=== PATIENT | male | born 2000 | race Caucasian/White ===

== ENCOUNTER 2019-07-13 15:32 | Emergency (ER) | payer OTHER ==
[~2019-07-13] VITALS: Ht 167.6 cm; Wt 57.9 kg
[2019-07-13 15:32] VITALS: BP 124/69
[2019-07-13 16:29] LABS: BASO % 0.6 % (0.0-1.0); EOS # 0.1 10^3/uL (0.0-0.5); EOS % 1.9 % (0.0-3.0); HEMOGLOBIN 12.9 g/dl (13.5-17.5); LYMPH # 1.7 10^3/uL (1.5-5.0); LYMPH % 27.3 % (24.0-44.0); MEAN CORPUSCULAR HEMOGLOBIN 29.3 pg (27.0-33.0); MEAN CORPUSCULAR HGB CONC 33.1 g/dl (32.0-36.5); MEAN CORPUSCULAR VOLUME 88.6 fl (80.0-96.0); MONO # 0.7 10^3/uL (0.0-0.8); MONO % 11.4 % (0.0-5.0); NEUTROPHILS # 3.6 10^3/uL (1.5-8.5); NEUTROPHILS % 58.6 % (36.0-66.0); PLATELET COUNT, AUTOMATED 256 10^3/uL (150-450); WHITE BLOOD COUNT 6.2 10^3/uL (4.0-10.0)
[2019-07-13 16:48] LABS: ERYTHROCYTE SEDIMENTATION RATE 3 mm/hr (0-15)
[2019-07-13 16:56] LABS: ALBUMIN 3.8 GM/DL (3.2-5.2); ALT/SGPT 62 U/L (12-78); BILIRUBIN,DIRECT 0.2 MG/DL (0.0-0.2); BILIRUBIN,TOTAL 0.5 MG/DL (0.2-1.0); BLOOD UREA NITROGEN 13 MG/DL (7-18); C REACTIVE PROTEIN QUANTITATIV 0.41 MG/DL (0.00-0.30); CALCIUM LEVEL 8.5 MG/DL (8.5-10.1); CARBON DIOXIDE LEVEL 26 MEQ/L (21-32); CHLORIDE LEVEL 114 MEQ/L (98-107); CREATININE FOR GFR 0.99 MG/DL (0.70-1.30); GLUCOSE, FASTING 106 MG/DL (70-100); POTASSIUM SERUM 3.9 MEQ/L (3.5-5.1); RHEUMATOID FACTOR QUANT < 10.0 IU/ML (<15.0); SODIUM LEVEL 144 MEQ/L (136-145)
[2019-07-13] MEDS ORDERED: MOBI4TAB PO (17:15)
[2019-07-17 00:09] LABS: ANTINUCLEAR ANTIBODIES DIRECT Negative (Negative); Lyme Disease IgG/IgM Antibodie <0.91 ISR (0.00-0.90); Lyme Disease IgM Ab Quantitati <0.80 index (0.00-0.79)
== END 2019-07-13 17:33 | disposition home or self-care (01) ==
LOC: M ED 15:32
DX: M13.0 Polyarthritis, unspecified (principal); F17.200 Nicotine dependence, unspecified, uncomplicated; Z79.899 Other long term (current) drug therapy

== ENCOUNTER 2020-01-17 20:30 | Emergency (ER) | payer OTHER ==
[~2020-01-17] VITALS: Ht 170.2 cm; Wt 54.5 kg
[~2020-01-17 20:30] MED LIST: MOBI4TAB PO
[2020-01-17 20:44] VITALS: BP 142/75
--- NOTE | 2020-01-17 22:05 | REPVR ---
PROCEDURE INFORMATION: Exam: XR Right Knee Exam date and time: 01/17/2020 8:38 PM Age: 19 years old Clinical indication: Post patella reduction TECHNIQUE: Imaging protocol: XR Right knee. Views: 2 views. COMPARISON: No relevant prior studies available. FINDINGS: Bones/joints: There is no fracture or dislocation. No joint effusion is identified. The joint spaces are preserved. No arthropathy is noted. The patellofemoral alignment is normal. Soft tissues: Unremarkable. IMPRESSION: No fracture or dislocation of the right knee. Normal patellofemoral alignment. Electronically signed by: Raulito Pineda On 01/17/2020 22:04:51 PM
== END 2020-01-17 22:20 | disposition home or self-care (01) ==
LOC: M ED 20:30
DX: S83.014A Lateral dislocation of right patella, initial encounter (principal); X50.1XXA Overexertion from prolonged static or awkward postures, initial encounter; Y92.89 Other specified places as the place of occurrence of the external cause; Y93.89 Activity, other specified; Y99.1 Military activity

== ENCOUNTER 2021-03-14 11:27 | Emergency (ER) | payer OTHER ==
[~2021-03-14] VITALS: Ht 167.6 cm; Wt 65.2 kg
--- OUTSIDE RECORDS SUMMARY | 2021-03-14 11:35 | CCD | Continuity of Care Document ---
Author Author Osvaldo OCASIO PA-C Organization Unknown Address [address] [address] Phone [phone] Care Team Providers Care Ciaio Counter Molder Name Role Phone Grant Siddiqui MD AUTM Unavailable Naeem Hall PA-C AUTM [phone] Problems Description No Information Available Social History Type Date Description Comments Sex Unknown ETOH Use Rarely consumes alcohol Tobacco Use Start: Unknown Patient is a current smoker, smo kes some days Smoking Status Reviewed: 01/15/21 Patient is a current smoker, smokes some days Allergies and adverse reactions Description No Known Drug Allergies Medications Active Medications SIG Qnty Indications Ordering Provide r Date Hydrocodone Bitartrate/Acetaminophen 5-325mg Tablets 1-2 tabs by mouth every 4-6 hours prn/pa in after surgery(Please DO Not Fill Until ) 40tabs Myrna Fulton MD Ibuprofen 200mg Tablets three times a day Unknown Immunizations Description No Information Available Vital Signs Date Vital Result Comment 02/26/2021 2:19pm Height 97.3 inches 8'1.30" 01/15/2021 8:59am Body Temperature 97.5 F Height 66.5 inches 5'6.50" Weight 147.12 lb BMI (Body Mass Index) 23.4 kg/m2 Results Test Acquired Date Facility Test Result H/L Range Note Laboratory test finding 01/21/2021 In House Covid Rapid Testing NEGATIVE 1 1 [facility] START COVID 19-ANTIGEN LOT #[id number] 02/15/21 @9:22AM Procedures Date Code Description Status 02/18/2021 80531 Reconstruct Patella W/Extensor Realignment/Muscle Advance/Release Completed 02/18/2021 14814 Reconstruct Patella W/Extensor Realignment/Muscle Advance/Release Completed 01/15/2021 34791 Office/Outpatient Established Mo d MDM 30-39 Min Completed 01/01/2021 98260 Office/Outpatient Established Lo w MDM 20-29 Min Completed 12/14/2020 45820 Office/Outpatient Established Mo d MDM 30-39 Min Completed 12/14/2020 41922 X-Ray Knee Ap & Lateral W/Obliqu es Three Views Completed Medical Devices Description No Information Available Encounters Type Date Location Provider Dx Diagnosis Office Visit 02/26/2021 2:30p Yesenia Ocasio PA-C Z4 7.89 Encounter for other orthopedic aftercare Office Visit 01/15/2021 8:45a Yesenia Fulton MD 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, right knee Office Visit 01/01/2021 8:30a Yesenia Fulton MD 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, right knee Office Visit 12/14/2020 10:30a Yesenia Fulton MD 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, right knee Assessments Date Code Description Provider 02/26/2021 Z47.89 Encounter for other orthopedic a ftercare Elizabeth Ocasio PA-C 02/18/2021 M2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 , right knee Elizabeth Ocasio PA-C 02/18/2021 M2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 , right knee Myrna Fulton MD 02/18/2021 M23.51 Chronic instability of knee, rig ht knee Elizabeth Ocasio PA-C 02/18/2021 M23.51 Chronic instability of knee, rig ht knee Myrna Fulton MD 02/15/2021 Z01.818 Encounter for other preprocedura l examination Myrna Fulton MD 02/15/2021 Z01.818 Encounter for other preprocedura l examination Lab 02/15/2021 Z20.828 Contact with and (christina spected) exposure to other viral communicable diseases Myrna Fulton MD 02/15/2021 Z20.828 Contact with and (christina spected) exposure to other viral communicable diseases Lab 02/05/2021 M2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 , right knee Myrna Fulton MD 01/21/2021 Z20.828 Contact with and (christina spected) exposure to other viral communicable diseases Myrna Fulton MD 01/15/2021 M2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 , right knee Myrna Fulton MD 01/01/2021 M2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 , right knee Myrna Fulton MD 12/14/2020 M2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 , right knee Myrna Fulton MD Plan of Treatment Future Appointment(s):* 03/16/2021 11:00 am - Elizabeth Ocasio PA-C at [place] 02/26/2021 - Elizabeth Ocasio PA-C* Z47.89 Encounter for other orthopedic aftercare* Follow up:* 2-3 weeks right knee recheck with BMS Functional Status Description No Information Available Mental Status Description No Information Available Referrals Refer to Dr Reason for Referral Status Appt Date Tressa Fulton MD DME NO AUTH REQUIRED FOR T-S COPE KNEE BRACE ([id number]) PER [employer] WEB TO [facility] NT Created [address] [place] [address] [phone] Tressa Fulton MD DME CRUTCHES AND RT KNEE IMM OBILIZER NO AUTH REQUIRED PER WEB. LS Created [address] [place] [address] [phone] Tressa Fulton MD SURGERY RECEIVED WRITTEN AUT H FOR RIGHT MPFL KNEE SURGERY ([id number] AND [id number]) TO SURGERY NT Created [address] [place] [address] [phone] Tressa Fulton MD RT KNEE PER WEB. LS Created [address] [place] [address] [phone] Tressa Fulton MD RT KNEE ( 3 VISITS) PER WEB. Creat ed [address] [facility], [address] [place] [address] [phone]
--- OUTSIDE RECORDS SUMMARY | 2021-03-14 11:36 | CCD | Continuity of Care Document ---
Author Author Osvaldo FULTON MD Organization Unknown Address [address] [place] [address], [facility] [address] [place] [address] Phone [phone] Care Team Providers Care Stock Mixer Name Role Phone Grant Siddiqui MD AUTM Unavailable Naeem Hall PA-C AUTM [phone] Problems Description No Information Available Social History Type Date Description Comments Sex Unknown ETOH Use Rarely consumes alcohol Tobacco Use Start: Unknown Patient is a current smoker, smo kes some days Smoking Status Reviewed: 01/15/21 Patient is a current smoker, smokes some days Allergies, Adverse Reactions, Alerts Description No Known Drug Allergies Medications Active Medications SIG Qnty Indications Ordering Provide r Date Ibuprofen 200mg Tablets three times a day Unknown Immunizations Description No Information Available Vital Signs Date Vital Result Comment 01/15/2021 8:59am Body Temperature 97.5 F Height 66.5 inches 5'6.50" Weight 147.12 lb BMI (Body Mass Index) 23.4 kg/m2 02/06/2020 3:32pm Body Temperature 97.8 F Height 67 inches 5'7" Weight 131.00 lb BMI (Body Mass Index) 20.5 kg/m2 Results Test Acquired Date Facility Test Result H/L Range Note Laboratory test finding 01/21/2021 In House Covid Rapid Testing NEGATIVE 1 1 CARE START COVID 19-ANTIGEN LOT #[id number] 02/15/21 @9:22AM Procedures Date Code Description Status 01/15/2021 47372 Office/Outpatient Established Mo d MDM 30-39 Min Completed 01/01/2021 13857 Office/Outpatient Established Lo w MDM 20-29 Min Completed 12/14/2020 49935 Office/Outpatient Established Mo d MDM 30-39 Min Completed 12/14/2020 52600 X-Ray Knee Ap & Lateral W/Obliqu es Three Views Completed Medical Devices Description No Information Available Encounters Type Date Location Provider Dx Diagnosis Office Visit 01/15/2021 8:45a Yesenia Fulton MD 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, right knee Office Visit 01/01/2021 8:30a Yesenia Fulton MD 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, right knee Office Visit 12/14/2020 10:[place] 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, right knee Assessments Date Code Description Provider 02/15/2021 Z01.818 Encounter for other preprocedura l examination Lab 02/15/2021 Z20.828 Contact with and (christina spected) exposure to other viral communicable diseases Lab 01/21/2021 Z20.828 Contact with and (christina spected) exposure to other viral communicable diseases Myrna Fulton MD 01/15/2021 M2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 , right knee Myrna Fulton MD 01/01/2021 M2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 , right knee Myrna Fulton MD 12/14/2020 M2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 , right knee Myrna Fulton MD Plan of Treatment Future Appointment(s):* 02/26/2021 2:30 pm - Elizabeth Ocasio PA-C at [place] * 02/18/2021 8:00 am - Elizabeth Ocasio PA-C at [facility] * 02/18/2021 8:00 am - Myrna Fulton MD at [facility] 01/15/2021 - Myrna Fulton MD* 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 LS Created [facility] [address] [address] [phone] Tressa Fulton MD SURGERY RECEIVED WRITTEN AUT H FOR RIGHT MPFL KNEE SURGERY (81425 AND C1713) TO SURGERY NT Created [address] [place] [address] [phone] Tressa Fulton MD RT KNEE PER WEB. LS Created [address] [place] [address] [phone] Tressa Fulton MD RT KNEE ( 3 VISITS) PER WEB. LS Creat ed [address] [place] [address] [phone]
--- OUTSIDE RECORDS SUMMARY | 2021-03-14 11:36 | CCD | Continuity of Care Document ---
Author Author Osvaldo Dave Organization Unknown Address [address] [place] [address] Phone [phone] Care Team Providers Care Carpet Yarn Winder Operator Name Role Phone Grant Siddiqui MD AUTM Unavailable Naeem Hall PA-C AUTM [phone] Problems Description No Information Available Social History [...] 1 1 CARE START COVID 19-ANTIGEN LOT #[id number] 02/15/21 @9:22AM Procedures Date Code Description Status 01/15/2021 92018 Office/Outpatient Established Mo d MDM 30-39 Min Completed 01/01/2021 27111 Office/Outpatient Established Lo w MDM 20-29 Min Completed 12/14/2020 31593 Office/Outpatient Established Mo d MDM 30-39 Min Completed 12/14/2020 42910 X-Ray Knee Ap & Lateral W/Obliqu es Three Views Completed Medical Devices Description No Information Available Encounters Type Date Location Provider Dx Diagnosis Office Visit 01/15/2021 8:45a Yesenia Fulton MD 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, right knee Office Visit 01/01/2021 8:30a [place] 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, right knee Office Visit 12/14/2020 10:30a [place] Fult[place] MD M2 2.01 Recurrent dislocation of [...] 2:30 pm - Elizabeth Ocasio PA-C at [place] * 02/18/2021 8:00 am - Elizabeth Ocasio PA-C at [facility] * 02/18/2021 8:00 am - Myrna Fulton MD at [facility] 01/15/2021 - Myrna Fluton MD* 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 LS Created [address] [place] [address], [place] [address] [phone] Tressa Fulton MD SURGERY RECEIVED WRITTEN AUT H FOR RIGHT MPFL KNEE SURGERY (01801 AND C1713) TO SURGERY NT Created [address] [place] [address] [phone] Tressa Fulton MD RT KNEE PER WEB. Created [address] [place] [address] [phone] Tressa Fulton MD RT KNEE ( 3 VISITS) PER WEB. Creat ed [address] [place] [address] [phone]
--- OUTSIDE RECORDS SUMMARY | 2021-03-14 11:36 | CCD | Continuity of Care Document ---
Author Author Osvaldo Dave Organization Unknown Address [address] [place] [address] Phone [phone] Care Team Providers Care Continuous Absorption Process Operator Name Role Phone Grant Siddiqui MD AUTM Unavailable Naeem Hall PA-C AUTM [phone] Problems Description No Information Available Social History [...] 1 1 CARE START COVID 19-ANTIGEN LOT #[id number] 02/15/21 @9:22AM Procedures Date Code Description Status 01/15/2021 05208 Office/Outpatient Established Mo d MDM 30-39 Min Completed 01/01/2021 25277 Office/Outpatient Established Lo w MDM 20-29 Min Completed 12/14/2020 90452 Office/Outpatient Established Mo d MDM 30-39 Min Completed 12/14/2020 93379 X-Ray Knee Ap & Lateral W/Obliqu es Three Views Completed Medical Devices Description No Information Available Encounters Type Date Location Provider Dx Diagnosis Office Visit 01/15/2021 8:45a Yesenia Fulton MD 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, right knee Office Visit 01/01/2021 8:30a [place] 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, right knee Office Visit 12/14/2020 10:30a [place] F[place] MD M2 2.01 Recurrent dislocation of [...] 2:30 pm - Elizabeth Ocasio PA-C at [place] * 02/18/2021 8:00 am - Elizabeth Ocasio PA-C at [facility] * 02/18/2021 8:00 am - Myrna Fulton MD at [facility] 01/15/2021 - Myrna Fulton MD* 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 LS Created [facility] [address] [phone] Tressa Fulton MD SURGERY RECEIVED WRITTEN AUT H FOR RIGHT MPFL KNEE SURGERY (15614 AND C1789) TO SURGERY NT Created [address] [place] [address] [phone] Tressa Fulton MD RT KNEE PER WEB. Created [address] [place] [address] [phone] Tressa Fulton MD RT KNEE ( 3 VISITS) PER WEB. Creat ed [address] [place] [phone]
--- OUTSIDE RECORDS SUMMARY | 2021-03-14 11:36 | CCD | Continuity of Care Document ---
Author Author Osvaldo OCASIO PA-C Organization Unknown Address [address] [address] Phone [phone] Care Team Providers Care Brick And Tile Making Machine Operator Name Role Phone Grant Siddiqui MD AUTM Unavailable Naeem Hall PA-C AUTM [phone] Problems Description No Information Available Social History [...] 1 1 CARE START COVID 19-ANTIGEN LOT #[id number] 02/15/21 @9:22AM Procedures Date Code Description Status 01/15/2021 40204 Office/Outpatient Established Mo d MDM 30-39 Min Completed 01/01/2021 36345 Office/Outpatient Established Lo w MDM 20-29 Min Completed 12/14/2020 86098 Office/Outpatient Established Mo d MDM 30-39 Min Completed 12/14/2020 22311 X-Ray Knee Ap & Lateral W/Obliqu es Three Views Completed Medical Devices Description No Information Available Encounters Type Date Location Provider Dx Diagnosis Office Visit 01/15/2021 8:45a [place] 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 Jayson Fulton MD* M2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, right knee* Follow up:* f/u post op Functional Status Description No Information Available Mental Status Description No Information Available Referrals Refer to Dr Reason for Referral Status Appt Date Tressa Fulton MD DME NO AUTH REQUIRED FOR T-S COPE KNEE BRACE ([id number]) PER [employer] WEB TO [facility] NT Created [address] [place] [address] [phone] Tressa Fulton MD DME CRUTCHES AND RT KNEE IMM OBILIZER NO AUTH REQUIRED PER WEB. LS Created [address] [place] [address] [phone] Tressa Fulton MD SURGERY RECEIVED WRITTEN AUT H FOR RIGHT MPFL KNEE SURGERY (58811 AND C1713) TO SURGERY NT Created [address] [place] [phone] Tressa Fulton MD RT KNEE PER WEB. Created [address] [place] [address] [phone] Tressa Fulton MD RT KNEE ( 3 VISITS) PER WEB. Creat ed [address] [place] [address] [phone]
--- OUTSIDE RECORDS SUMMARY | 2021-03-14 11:36 | CCD | Continuity of Care Document ---
Author Author Osvaldo FULTON MD Organization Unknown Address [address] [place] [address], [address] [place] [address] Phone [phone] Care Team Providers Care Bread Panner Name Role Phone Grant Siddiqui MD AUTM Unavailable Naeem Hall PA-C AUTM [phone] Problems Description No Information Available Social History Type Date Description Comments Sex Unknown ETOH Use Rarely consumes alcohol Tobacco Use Start: Unknown Patient is a current smoker, smo kes some days Allergies, Adverse Reactions, Alerts Description No Known Drug Allergies Medications Active Medications SIG Qnty Indications Ordering Provide r Date Ibuprofen 200mg Tablets three times a day Unknown Immunizations Description No Information Available Vital Signs Date Vital Result Comment 02/06/2020 3:32pm Body Temperature 97.8 F Height 67 inches 5'7" Weight 131.00 lb BMI (Body Mass Index) 20.5 kg/m2 Results Description No Information Available Procedures Date Code Description Status 01/01/2021 18440 Office/Outpatient Established Lo w MDM 20-29 Min Completed 12/14/2020 93490 Office/Outpatient Established Mo d MDM 30-39 Min Completed 12/14/2020 14627 X-Ray Knee Ap & Lateral W/Obliqu es Three Views Completed Medical Devices Description No Information Available Encounters Type Date Location Provider Dx Diagnosis Office Visit 01/01/2021 8:30a Yesenia Fulton MD 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, right knee Office Visit 12/14/2020 10:30a Yesenia Fulton MD 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
--- OUTSIDE RECORDS SUMMARY | 2021-03-14 11:36 | CCD ---
Author Author [facility] Organization [facility] Address Unknown Phone Unavailable Care Team Providers Care Programmer Business Name Role Phone Cyndie Ocasio Unavailable Unavailable Cyndie Ocasio PA Unavailable Unavailable Cyndie Ocasio PA Unavailable Unavailable Cyndie Ocasio PA Unavailable Unavailable Cyndie Ocasioatt PA Unavailable Unavailable Cyndie Ocasioatt PA Unavailable Unavailable Cyndie Ocasioatt PA Unavailable Unavailable Cydnie Ocasioatt PA Unavailable Unavailable Cyndie Ocasioatt PA Unavailable Unavailable Cyndie Ocasioatt PA Unavailable Unavailable Ocasio, M Keithatt PA Unavailable Unavailable Cyndie Ocasioatt PA Unavailable Unavailable Ocasio, M Keithatt PA Unavailable Unavailable Ocasio, M Keithatt PA Unavailable Unavailable Ocasio, M Keithatt PA Unavailable Unavailable OcasioCyndie huertaatt PA Unavailable Unavailable OcasioCyndie huertaatt PA Unavailable Unavailable Ocasio, M Barratt PA Unavailable Unavailable Ocasio, M Barratt PA Unavailable Unavailable Ocasio, M Barratt PA Unavailable Unavailable Amarjit M Keithatt PA Unavailable Unavailable Amarjit M Keithatt PA Unavailable Unavailable Amarjit M Keithatt PA Unavailable Unavailable Amarjit M Keithatt PA Unavailable Unavailable Amarjit M Barratt PA Unavailable Unavailable Amarjit M Barratt PA Unavailable Unavailable Amarjit M Barratt PA Unavailable Unavailable Amarjit M Barratt PA Unavailable Unavailable Cyndie Ocasioatt PA Unavailable Unavailable Tressa Fulton MD Unavailable Unavailable Tressa Fulton MD Unavailable Unavailable Tressa Fulton MD Unavailable Unavailable Tressa Fulton MD Unavailable Unavailable Tressa Fulton MD Unavailable Unavailable Tressa Fulton MD Unavailable Unavailable Tressa Fulton MD Unavailable Unavailable Tressa Fulton MD Unavailable Unavailable Tressa Fulton MD Unavailable Unavailable Vaneenenaam, Tressa Tyler MD Unavailable Unavailable Vaneenenaam, Tressa Tyler MD Unavailable Unavailable Vaneenenaam, Tressa Tyler MD Unavailable Unavailable Vaneenenaam, Tressa Tyler MD Unavailable Unavailable Vaneenenaam, Tressa Tyler MD Unavailable Unavailable Vaneenenaam, Tressa Tyler MD Unavailable Unavailable Vaneenenaam, Tressa Tyler MD Unavailable Unavailable Vaneenenaam, Tressa Tyler MD Unavailable Unavailable Vaneenenaam, Tressa Tyler MD Unavailable Unavailable Vaneenenaam, Tressa Tyler MD Unavailable Unavailable Vaneenenaam, Tressa Tyler MD Unavailable Unavailable Vaneenenaam, Tressa Tyler MD Unavailable Unavailable Vaneenenaam, Tressa Tyler MD Unavailable Unavailable Vaneenenaam, Tressa Tyler MD Unavailable Unavailable Vaneenenaam, Tressa Tyler MD Unavailable Unavailable Vaneenenaam, Tressa Tyler MD Unavailable Unavailable Vaneenenaam, Tressa Tyler MD Unavailable Unavailable Vaneenenaam, Tressa Tyler MD Unavailable Unavailable Vaneenenaam, Tressa Tyler MD Unavailable Unavailable Vaneenenaam, Tressa Tyler MD Unavailable Unavailable Vaneenenaam, Tressa Tyler MD Unavailable Unavailable Vaneenenaam, Tressa Tyler MD Unavailable Unavailable Vaneenenaam, Tressa Tyler MD Unavailable Unavailable Vaneenenaam, Tressa Tyler MD Unavailable Unavailable Vaneenenaam, Tressa Tyler MD Unavailable Unavailable Vaneenenaam, Tressa Tyler MD Unavailable Unavailable Vaneenenaam, Tressa Tyler MD Unavailable Unavailable Vaneenenaam, Tressa Tyler MD Unavailable Unavailable Vaneenenaam, Tressa Tyler MD Unavailable Unavailable Vaneenenaam, Tressa Tyler MD Unavailable Unavailable Vaneenenaam, Tressa Tyler MD Unavailable Unavailable Vaneenenaam, Tressa Tyler MD Unavailable Unavailable Vaneenenaam, Tressa Tyler MD Unavailable Unavailable Vaneenenaam, Tressa Tyler MD Unavailable Unavailable Vaneenenaam, Tressa Tyler MD Unavailable Unavailable Vaneenenaam, Tressa Tyler MD Unavailable Unavailable Vaneenenaam, Tressa Tyler MD Unavailable Unavailable Re-disclosure Warning The records that you are about to access may contain information from federally-assisted alcohol or drug abuse programs. If such information is present, then the following federally mandated warning applies: This information has been disclosed to you from records protected by federal confidentiality rules (42 CFR part 2). The federal rules prohibit you from making any further disclosure of this information unless further disclosure is expressly permitted by the written consent of the person to whom it pertains or as otherwise permitted by 42 CFR part 2. A general authorization for the release of medical or other information is NOT sufficient for this purpose. The Federal rules restrict any use of the information to criminally investigate or prosecute any alcohol or drug abuse patient.The records that you are about to access may contain highly sensitive health information, the redisclosure of which is protected by Article 27-F of the [facility] Public Health law. If you continue you may have access to information: Regarding HIV / AIDS; Provided by facilities licensed or operated by the [facility] Office of Mental Health; or Provided by the [facility] Office for People With Developmental Disabilities. If such information is present, then the following [facility] mandated warning applies: This information has been disclosed to you from confidential records which are protected by state law. State law prohibits you from making any further disclosure of this information without the specific written consent of the person to whom it pertains, or as otherwise permitted by law. Any unauthorized further disclosure in violation of state law may result in a fine or fci sentence or both. A general authorization for the release of medical or other information is NOT sufficient authorization for further disc losure. Encounters Encounter Providers Location Date Indications Data Source(s ) Office Visit Attender: Elizabeth HUANG Physical Therapy 02:30:00 PM EDT [facility] ([facility]) Outpatient Attender: Tressa Fulton MD Physical Therap y 01/15/2021 08:45:00 AM EDT [facility] ([facility]) OFFICE OUTPATIENT VISIT 15 MINUTES Attender: Tressa saenz MD Physical Therapy 01/01/2021 08:30:00 AM EDT [facility] ([facility]) Outpatient Attender: Tressa Fulton MD Physical Therap y 12/14/2020 10:30:00 AM EDT [facility] ([facility]) Outpatient Attender: Tressa Fulton MD Physical Therap y 04/07/2020 02:00:00 PM EST [facility] ([facility]) Outpatient Attender: Tressa Fulton MD Physical Therap y 03/04/2020 11:00:00 AM EDT [facility] ([facility]) Outpatient Attender: Tressa Fulton MD Physical Therap y 02/06/2020 02:45:00 PM EDT [facility] ([facility]) Medications Medication Brand Name Start Date Product Form Dose Route Admi nistrative Instructions Pharmacy Instructions Status Indications Reaction Description Data Source(s) Acetaminophen 325 MG / Hydrocodone Bitartrate 5 MG Ora l Tablet Hydrocodone Bitartrate/Acetaminophen 02/18/2021 12:00:00 AM EDT ORAL active [facility] ([facility] ) Insurance Providers Payer name Policy type / Coverage type Policy ID Covered constitution party ID Covered constitution party's relationship to venegas Policy [place] Plan Information [facility] ACTIVE DUTY [id number] SP [id number] [employer] [facility] REG O [id number] S [id number] Problems, Conditions, and Diagnoses No Information Surgeries/Procedures Procedure Description Date Indications Data Source(s) Reconstruct Patella W/Extensor Realignment/Muscle Advance/Re lease 02/18/2021 12:00:00 AM EDT [facility] Reconstruct Patella W/Extensor Realignment/Muscle Advance/Re lease 02/18/2021 12:00:00 AM EDT [facility] OFFICE OUTPATIENT VISIT 25 MINUTES 01/15/2021 12:00:00 AM EDT [facility] ([facility] ) OFFICE OUTPATIENT VISIT 15 MINUTES 01/01/2021 12:00:00 AM EDT [facility] ([facility] ) RADIOLOGIC EXAMINATION KNEE 3 VIEWS 12/14/2020 12:00:0 0 AM EDT [facility] ([facility] ) OFFICE OUTPATIENT VISIT 25 MINUTES 12/14/2020 12:00:00 AM EDT [facility] ([facility] ) MRI Lower Extremity Any Joint 02/18/2020 12:00:00 AM E DT [facility] ([facility] ) Results ID Date Data Source [id number] 02/15/2021 12:00:00 AM EDT [facility] Name Value Range Interpretation Code Description Data Stacy rce(s) Supporting Document(s) Covid Rapid Testing Negative [facility] This lab was ordered by [place] and re ported by [facility]. ID Date Data Source [id number] 01/21/2021 02:38:00 PM EDT [facility] ([facility] ) Name Value Range Interpretation Code Description Data Stacy rce(s) Supporting Document(s) Covid Rapid Testing Laboratory test result [facility] ([facility]) CARE START COVID 19-ANTIGEN LOT #[id number] 02/15/21 @9:22AM ID Date Data Source [id number] 01/20/2021 02:14:00 PM EDT [facility] ([facility]) Name Value Range Interpretation Code Description Data Stacy rce(s) Supporting Document(s) Laboratory test finding (navigational concept) Laboratory test result [facility] ([facility]) Procedure Social History No Information Vital Signs ID Date Data Source UNK Name Value Range Interpretation Code Description Data Source(s) Body height 97.3 [in_i] 97.3 [in_i] [facility] ([facility]) 8'1.30" Body temperature 97.5 [degF] 97.5 [degF] [facility] ([facility]) Body height 66.5 [in_i] 66.5 [in_i] [facility] ([facility]) 5'6.50" Body weight 147.12 [lb_av] 147.12 [lb_av] [facility] ([facility]) Body mass index (BMI) [Ratio] 23.4 kg/m2 23.4 k g/m2 [facility] ([facility]) Body temperature 97.8 [degF] 97.8 [degF] [facility] ([facility]) Body weight 131.00 [lb_av] 131.00 [lb_av] [facility] ([facility] Body mass index (BMI) [Ratio] 20.5 kg/m2 20.5 k g/m2 [facility] ([facility] ) Body height 67 [in_i] 67 [in_i] [facility] ([facility] ) 5'7"
--- OUTSIDE RECORDS SUMMARY | 2021-03-14 11:36 | CCD | Continuity of Care Document ---
Author Author Osvaldo FULTON MD Organization Unknown Address [address] [place] [address], [address] [place] [address] Phone [phone] Care Team Providers Care Grey Tender Name Role Phone Grant Siddiqui MD AUTM Unavailable Naeem Hall PA-C AUTM [phone] Problems Description No Information Available Social History [...] Information Available Procedures Date Code Description Status 12/14/2020 80398 Office/Outpatient Established Mo d MDM 30-39 Min Completed 12/14/2020 63472 X-Ray Knee Ap & Lateral W/Obliqu es Three Views Completed Medical Devices Description No Information Available Encounters Type Date Location Provider Dx Diagnosis Office Visit 12/14/2020 10:30a [place] Myrna Fulton MD 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
--- OUTSIDE RECORDS SUMMARY | 2021-03-14 11:36 | CCD | Continuity of Care Document ---
Author Author Osvaldo FULTON MD Organization Unknown Address [address] [place] [address], [facility] [address] [place] [address] Phone [phone] Care Team Providers Care Office Copy Selector Name Role Phone Grant Siddiqui MD AUTM Unavailable Naeem Hall PA-C AUTM [phone] Problems Description No Information Available Social History [...] surgery(Please DO Not Fill Until ) 40tabs DGuanaco Fulton MD Ibuprofen 200mg Tablets three times [...] 1 1 CARE START COVID 19-ANTIGEN LOT #[id number] 02/15/21 @9:22AM Procedures Date Code Description Status 01/15/2021 25118 Office/Outpatient Established Mo d MDM 30-39 Min Completed 01/01/2021 86241 Office/Outpatient Established Lo w MDM 20-29 Min Completed 12/14/2020 06952 Office/Outpatient Established Mo d MDM 30-39 Min Completed 12/14/2020 13457 X-Ray Knee Ap & Lateral W/Obliqu es Three Views Completed Medical Devices Description No Information Available Encounters Type Date Location Provider Dx Diagnosis Office Visit 01/15/2021 8:45a [place] Fult[place] 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, right knee Office Visit 01/01/2021 8:30a [place] Fult[place] 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, right knee Office Visit 12/14/2020 10:30a [place] Fult[place] MD M2 2.01 Recurrent dislocation of [...] 2:30 pm - Elizabeth Ocasio PA-C at [place] 01/15/2021 - Myrna Fulton MD* 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 Created [address] [place] [address] [phone] Tressa Fulton MD SURGERY RECEIVED WRITTEN AUT H FOR RIGHT MPFL KNEE SURGERY ([id number] AND C1713) TO SURGERY NT Created [address] [place] [phone] Tressa Fulton MD RT KNEE PER WEB. Created [address] [place] [phone] Tressa Fulton MD RT KNEE ( 3 VISITS) PER WEB. Creat ed [address] [place] [phone]
--- OUTSIDE RECORDS SUMMARY | 2021-03-14 11:36 | CCD | Continuity of Care Document ---
Author Author Osvaldo OCASIO PA-C Organization Unknown Address [address] [address] Phone [phone] Care Team Providers Care Licensed Surveyor Name Role Phone Grant Siddiqui MD AUTM Unavailable Naeem Hall PA-C AUTM [phone] Problems Description No Information Available Social History [...] 1 1 CARE START COVID 19-ANTIGEN LOT #[id number] 02/15/21 @9:22AM Procedures Date Code Description Status 02/18/2021 66753 Reconstruct Patella W/Extensor Realignment/Muscle Advance/Release Completed 02/18/2021 59637 Reconstruct Patella W/Extensor Realignment/Muscle Advance/Release Completed 01/15/2021 49595 Office/Outpatient Established Mo d MDM 30-39 Min Completed 01/01/2021 97536 Office/Outpatient Established Lo w MDM 20-29 Min Completed 12/14/2020 83557 Office/Outpatient Established Mo d MDM 30-39 Min Completed 12/14/2020 18265 X-Ray Knee Ap & Lateral W/Obliqu es [...] knee Myrna Fulton MD Plan of Treatment 02/26/2021 - Elizabeth Ocasio PA-C* Z47.89 Encounter for other orthopedic aftercare* Follow up:* 2-3 weeks right knee recheck with BMS Functional Status Description No Information Available Mental Status Description No Information Available Referrals Refer to Dr Reason for Referral Status Appt Date Tressa Fulton MD DME NO AUTH REQUIRED FOR T-S COPE KNEE BRACE ([id number]) PER [employer] WEB TO [facility] NT Created [address] [place] [address] [phone] Tressa Fulton MD DME CRUTCHES AND RT KNEE IMM OBILIZER NO AUTH REQUIRED PER WEB. Created [address] [place] [address] [phone] Tressa Fulton MD SURGERY RECEIVED WRITTEN AUT H FOR RIGHT MPFL KNEE SURGERY (36414 AND C1777) TO SURGERY NT Created [address] [place] [address] [phone] Tressa Fulton MD RT KNEE PER WEB. Created [address] [place] [address] [phone] Tressa Fulton MD RT KNEE ( 3 VISITS) PER WEB. Creat ed [address] [place] [phone] [phone]
--- OUTSIDE RECORDS SUMMARY | 2021-03-14 11:36 | CCD | Continuity of Care Document ---
Author Author Osvaldo OCASIO PA-C Organization Unknown Address [address] [address] Phone [phone] Care Team Providers Care Parking Assistant Name Role Phone Grant Siddiqui MD AUTM Unavailable Naeem Hall PA-C AUTM [phone] Problems Description No Information Available Social History [...] 1 1 CARE START COVID 19-ANTIGEN LOT #[id number] 02/15/21 @9:22AM Procedures Date Code Description Status 02/18/2021 56610 Reconstruct Patella W/Extensor Realignment/Muscle Advance/Release Completed 02/18/2021 48918 Reconstruct Patella W/Extensor Realignment/Muscle Advance/Release Completed 01/15/2021 97793 Office/Outpatient Established Mo d MDM 30-39 Min Completed 01/01/2021 30673 Office/Outpatient Established Lo w MDM 20-29 Min Completed 12/14/2020 64819 Office/Outpatient Established Mo d MDM 30-39 Min Completed 12/14/2020 48366 X-Ray Knee Ap & Lateral W/Obliqu es [...] right knee Assessments Date Code Description Provider 02/18/2021 M2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 , [...] 2:30 pm - Elizabeth Ocasio PA-C at [place] 01/15/2021 - Myrna Fulton MD* M2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, right knee* Follow up:* f/u post op Functional Status Description No Information Available Mental Status Description No Information Available Referrals Refer to Dr Reason for Referral Status Appt Date Tressa Fulton MD DME NO AUTH REQUIRED FOR T-S COPE KNEE BRACE ([id number]) PER [employer] WEB TO [facility] NT Created [address] [place] [address] [phone] Tressa Fulton MD DME CRUTCHES AND RT KNEE IMM OBILIZER NO AUTH REQUIRED PER WEB. LS Created [address] [place], [place] [phone] Tressa Fulton MD SURGERY RECEIVED WRITTEN AUT H FOR RIGHT MPFL KNEE SURGERY ([id number] AND C1703) TO SURGERY NT Created [address] [place] [phone] Tressa Fulton MD RT KNEE PER WEB. Created [address] [place] [address] [phone] Tressa Fulton MD RT KNEE ( 3 VISITS) PER WEB. Creat ed [address] [place] [phone]
--- OUTSIDE RECORDS SUMMARY | 2021-03-14 11:36 | CCD | Continuity of Care Document ---
Author Author Osvaldo FULTON MD Organization Unknown Address [address] [place] [address], [facility] [address] [place] [address] Phone [phone] Care Team Providers Care Benefits Technician Name Role Phone Grant Siddiqui MD AUTM Unavailable Naeem Hall PA-C AUTM [phone] Problems Description No Information Available Social History [...] 1 1 CARE START COVID 19-ANTIGEN LOT #[id number] 02/15/21 @9:22AM Procedures Date Code Description Status 01/15/2021 27622 Office/Outpatient Established Mo d MDM 30-39 Min Completed 01/01/2021 71852 Office/Outpatient Established Lo w MDM 20-29 Min Completed 12/14/2020 05039 Office/Outpatient Established Mo d MDM 30-39 Min Completed 12/14/2020 33793 X-Ray Knee Ap & Lateral W/Obliqu es Three Views Completed Medical Devices Description No Information Available Encounters Type Date Location Provider Dx Diagnosis Office Visit 01/15/2021 8:45a [place] F[place] 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 Jayson Fulton MD* M2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, right knee* Follow up:* f/u post op Functional Status Description No Information Available Mental Status Description No Information Available Referrals Refer to Dr Reason for Referral Status Appt Date Tressa Fulton MD DME NO AUTH REQUIRED FOR T-S COPE KNEE BRACE ([id number]) PER [employer] WEB TO [facility] NT Created [address] [place] [address] [phone] Tressa Fulton MD DME CRUTCHES AND RT KNEE IMM OBILIZER NO AUTH REQUIRED PER WEB. LS Created [address] [place] [phone] Tressa Fulton MD SURGERY RECEIVED WRITTEN AUT H FOR RIGHT MPFL KNEE SURGERY ([id number] AND C1713) TO SURGERY NT Created [address] [place] [address] [phone] Tressa Fulton MD RT KNEE PER WEB. Created [address] [place] [address] [phone] Tressa Fulton MD RT KNEE ( 3 VISITS) PER WEB. Creat ed [address] [place] [phone] [phone]
--- OUTSIDE RECORDS SUMMARY | 2021-03-14 11:36 | CCD | Continuity of Care Document ---
Author Author Osvaldo FULTON MD Organization Unknown Address [address] [place] [address], [address] [place] [address] Phone [phone] Care Team Providers Care Field Training Manager Name Role Phone Grant Siddiqui MD AUTM Unavailable Naeem Hall PA-C AUTM [phone] Problems Description No Information Available Social History [...] Available Procedures Date Code Description Status 12/14/2020 97854 Office/Outpatient Established Mo d MDM 30-39 Min Completed 12/14/2020 66371 X-Ray Knee Ap & Lateral W/Obliqu es Three Views Completed Medical Devices Description No Information Available Encounters Type Date Location Provider Dx Diagnosis Office Visit 12/14/2020 10:30a [place] F[place] 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
--- OUTSIDE RECORDS SUMMARY | 2021-03-14 11:36 | CCD | Continuity of Care Document ---
Author Author Osvaldo FULTON MD Organization Unknown Address [address] [place] [address], [address] [place] [address] Phone [phone] Care Team Providers Care Gradall Operator Name Role Phone Grant Siddiqui MD AUTM Unavailable Naeem Hall PA-C AUTM [phone] Problems Description No Information Available Social History Type Date Description Comments Sex Unknown Allergies, Adverse Reactions, Alerts Description No Known Drug Allergies Medications Active Medications SIG Qnty Indications Ordering Provide r Date Meloxicam 7.5mg Tablets Take 1 Tablet By Mouth Once Daily With Food Unknown Immunizations Description No Information Available Vital Signs Date Vital Result Comment 02/06/2020 3:32pm Body Temperature 97.8 F Height 67 inches 5'7" Weight 131.00 lb BMI (Body Mass Index) 20.5 kg/m2 Results Description No Information Available Procedures Date Code Description Status 12/14/2020 90153 X-Ray Knee Ap & Lateral W/Obliqu es Three Views Completed Medical Devices Description No Information Available Encounters Description No Information Available Assessments Date Code Description Provider 12/14/2020 M2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 , right knee Myrna Fulton MD Plan of Treatment 12/14/2020 - Myrna Fulton MD* 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
--- OUTSIDE RECORDS SUMMARY | 2021-03-14 11:36 | CCD | Continuity of Care Document ---
Author Author Osvaldo FULTON MD Organization Unknown Address [address] [place] [address], [facility] [address] [place] [address] Phone [phone] Care Team Providers Care Customer Service Administrator Name Role Phone Grant Siddiqui MD AUTM Unavailable Naeem Hall PA-C AUTM [phone] Problems Description No Information Available Social History [...] 1 1 CARE START COVID 19-ANTIGEN LOT #[id number] 02/15/21 @9:22AM Procedures Date Code Description Status 02/18/2021 38163 Reconstruct Patella W/Extensor Realignment/Muscle Advance/Release Completed 02/18/2021 71630 Reconstruct Patella W/Extensor Realignment/Muscle Advance/Release Completed 01/15/2021 34083 Office/Outpatient Established Mo d MDM 30-39 Min Completed 01/01/2021 39423 Office/Outpatient Established Lo w MDM 20-29 Min Completed 12/14/2020 83124 Office/Outpatient Established Mo d MDM 30-39 Min Completed 12/14/2020 22000 X-Ray Knee Ap & Lateral W/Obliqu es [...] 2:30 pm - Elizabeth Ocasio PA-C at [facility] 01/15/2021 - Myrna Fulton MD* 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 LS Created [address] [place] [phone] Tressa Fulton MD SURGERY RECEIVED WRITTEN AUT H FOR RIGHT MPFL KNEE SURGERY (49191 AND C1723) TO SURGERY NT Created [address] [place] [phone] Tressa Fulton MD RT KNEE PER WEB. Created [address] [place] [phone] Tressa Fulton MD RT KNEE ( 3 VISITS) PER WEB. Creat ed [address] [place] [phone]
--- OUTSIDE RECORDS SUMMARY | 2021-03-14 11:36 | CCD | Continuity of Care Document ---
Author Author Osvaldo FULTON MD Organization Unknown Address [address] [place] [address], [address] [place] [address] Phone [phone] Care Team Providers Care Seam Stay Stitcher Name Role Phone Grant Siddiqui MD AUTM Unavailable Naeem Hall PA-C AUTM [phone] Problems Description No Information Available Social History [...] Available Procedures Date Code Description Status 01/01/2021 55910 Office/Outpatient Established Lo w MDM 20-29 Min Completed 12/14/2020 37749 Office/Outpatient Established Mo d MDM 30-39 Min Completed 12/14/2020 84879 X-Ray Knee Ap & Lateral W/Obliqu es Three Views Completed Medical Devices Description No Information Available Encounters Type Date Location Provider Dx Diagnosis Office Visit 01/01/2021 8:30a Yesenia Fulton MD 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, right knee Office Visit 12/14/2020 10:30a [place] Myrna Fulton MD 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, right knee Assessments Date Code Description Provider 01/15/2021 M2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 , right knee Myrna Fulton MD 01/01/2021 M2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 , right knee Myrna Fulton MD 12/14/2020 M2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 , right knee Myrna Fulton MD Plan of Treatment 01/15/2021 - Myrna Fulton MD* 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 LS Created [address] [place] [phone] Tressa Fulton MD RT KNEE PER WEB. Created [address] [place] [phone] Tressa Fulton MD RT KNEE ( 3 VISITS) PER WEB. Creat ed [address] [place] [phone]
--- OUTSIDE RECORDS SUMMARY | 2021-03-14 11:36 | CCD | Continuity of Care Document ---
Author Author Osvaldo FULTON MD Organization Unknown Address [address] [facility], [facility] [address] [place] [address] Phone [phone] Care Team Providers Care It Field Technician Name Role Phone Grant Siddiqui MD AUTM Unavailable Naeem Hall PA-C AUTM [phone] Problems Description No Information Available Social History [...] finding 01/21/2021 In House Covid Rapid Testing <pending> Order 01/20/2021 [facility] [address] [facility] [address] [place] [address] Surgery <pending> Procedures Date Code Description Status 01/15/2021 55188 Office/Outpatient Established Mo d MDM 30-39 Min Completed 01/01/2021 38441 Office/Outpatient Established Lo w MDM 20-29 Min Completed 12/14/2020 67968 Office/Outpatient Established Mo d MDM 30-39 Min Completed 12/14/2020 27245 X-Ray Knee Ap & Lateral W/Obliqu es Three Views Completed Medical Devices Description No Information Available Encounters Type Date Location Provider Dx Diagnosis Office Visit 01/15/2021 8:45a Yesenia Fulton MD 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, right knee Office Visit 01/01/2021 8:30a Yeseina Fulton MD 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, right knee Office Visit 12/14/2020 10:30a Dixonesperanza Fulton MD 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, right knee Assessments Date Code Description Provider 01/21/2021 Z20.828 Contact with and (christina spected) exposure to other viral communicable diseases Myrna Fulton MD 01/15/2021 M2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 , right knee Myrna Fulton MD 01/01/2021 M2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 , right knee Myrna Fulton MD 12/14/2020 M2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 , right knee Myrna Fulton MD Plan of Treatment Future Appointment(s):* 02/18/2021 8:00 am - Elizabeth Ocasio PA-C at [facility] * 02/18/2021 8:00 am - Myrna Fulton MD at Surgery [facility] * 02/15/2021 9:30 am - Lab at [facility] 01/15/2021 - Myrna Fulton MD* 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 LS Created [facility] [facility], [address] [place] [address] [phone] Tressa Fulton MD SURGERY RECEIVED WRITTEN AUT H FOR RIGHT MPFL KNEE SURGERY (61195 AND C1775) TO SURGERY NT Created [address] [facility], [address] [place] [phone] Tressa Fulton MD RT KNEE PER WEB. LS Created [address] [place] [address], [address] [address] [phone] Tressa Fulton MD RT KNEE ( 3 VISITS) PER WEB. LS Creat ed [facility], [address] [address] [phone]
--- OUTSIDE RECORDS SUMMARY | 2021-03-14 13:17 | CCD ---
Author Author [facility] Organization [facility] Address Unknown Phone Unavailable Care Team Providers Care Physician Chief Of Pathology Name Role Phone Cyndie Ocasio Unavailable Unavailable [...] M Keithatt PA Unavailable Unavailable Amarjit M eKithatt PA Unavailable Unavailable Amarjit M Keithatt PA [...] Unavailable Unavailable Tressa Fulton MD Unavailable Unavailable Tresas Fulton MD Unavailable Unavailable Tressa Fulton MD [...] is protected by Article 27-F of the [facility] Public Health law. If you continue you may have access to information: Regarding HIV / AIDS; Provided by facilities licensed or operated by the [facility] Office of Mental Health; or Provided by the [facility] Office for People With Developmental Disabilities. If such information is present, then the following [facility] mandated warning applies: This information has [...] law may result in a fine or snf sentence or both. A general authorization for the release of medical or other information is NOT sufficient authorization for further disc losure. Encounters Encounter Providers Location Date Indications Data Source(s ) Office Visit Attender: Elizabeth HUANG Physical Therapy 02:30:00 PM EDT [facility] ([facility]) Outpatient Attender: Tressa Fulton MD Physical Therap y 01/15/2021 08:45:00 AM EDT [facility] ([facility]) OFFICE OUTPATIENT VISIT 15 MINUTES Attender: Tressa saenz MD Physical Therapy 01/01/2021 08:30:00 AM EDT [facility] ([facility]) Outpatient Attender: Tressa Fulton MD Physical Therap y 12/14/2020 10:30:00 AM EDT [facility] ([facility]) Outpatient Attender: Tressa Fulton MD Physical Therap y 04/07/2020 02:00:00 PM EST [facility] ([facility]) Outpatient Attender: Tressa Fulton MD Physical Therap y 03/04/2020 11:00:00 AM EDT [facility] ([facility]) Outpatient Attender: Tressa Fulton MD Physical Therap y 02/06/2020 02:45:00 PM EDT [facility] ([facility]) Medications Medication Brand Name Start Date Product Form Dose Route Admi nistrative Instructions Pharmacy Instructions Status Indications Reaction Description Data Source(s) Acetaminophen 325 MG / Hydrocodone Bitartrate 5 MG Ora l Tablet Hydrocodone Bitartrate/Acetaminophen 02/18/2021 12:00:00 AM EDT ORAL active [facility] ([facility] ) Insurance Providers Payer name Policy type / Coverage type Policy ID Covered democrat ID Covered democrat's relationship to venegas Policy Venegas Plan Information [facility] ACTIVE DUTY [id number] SP [id number] [employer] [facility] REG O [id number] S [id number] Problems, Conditions, and Diagnoses No Information Surgeries/Procedures Procedure Description Date Indications Data Source(s) Reconstruct Patella W/Extensor Realignment/Muscle Advance/Re lease 02/18/2021 12:00:00 AM EDT [facility] Reconstruct Patella W/Extensor Realignment/Muscle Advance/Re lease 02/18/2021 12:00:00 AM EDT [facility] OFFICE OUTPATIENT VISIT 25 MINUTES 01/15/2021 12:00:00 AM EDT [facility] ([facility] OFFICE OUTPATIENT VISIT 15 MINUTES 01/01/2021 12:00:00 AM EDT [facility] ([facility] ) RADIOLOGIC EXAMINATION KNEE 3 VIEWS 12/14/2020 12:00:0 0 AM EDT [facility] ([facility] OFFICE OUTPATIENT VISIT 25 MINUTES 12/14/2020 12:00:00 AM EDT [facility] ([facility] MRI Lower Extremity Any Joint 02/18/2020 12:00:00 AM E DT [facility] ([facility] ) Results ID Date Data Source [id number] 02/15/2021 12:00:00 AM EDT [facility] Name Value Range Interpretation Code Description Data Stacy rce(s) Supporting Document(s) Covid Rapid Testing Negative [facility] This lab was ordered by [facility] and re ported by [facility]. ID Date Data Source [id number] 01/21/2021 02:38:00 PM EDT [facility] ([facility] Name Value Range Interpretation Code Description Data Stacy rce(s) Supporting Document(s) Covid Rapid Testing Laboratory test result [facility] ([facility]) CARE START COVID 19-ANTIGEN LOT #[id number] 02/15/21 @9:22AM ID Date Data Source [id number] 01/20/2021 02:14:00 PM EDT [facility] ([facility]) Name Value Range Interpretation Code Description Data Stacy rce(s) Supporting Document(s) Laboratory test finding (navigational concept) Laboratory test result [facility] ([facility]) Procedure Social History No Information Vital Signs ID Date Data Source UNK Name Value Range Interpretation Code Description Data Source(s) Body height 97.3 [in_i] 97.3 [in_i] [facility] ([facility]) 8'1.30" Body temperature 97.5 [degF] 97.5 [degF] [facility] ([facility]) Body height 66.5 [in_i] 66.5 [in_i] [facility] ([facility]) 5'6.50" Body weight 147.12 [lb_av] 147.12 [lb_av] [facility] ([facility]) Body mass index (BMI) [Ratio] 23.4 kg/m2 23.4 k g/m2 [facility] ([facility]) Body temperature 97.8 [degF] 97.8 [degF] [facility] ([facility]) Body weight 131.00 [lb_av] 131.00 [lb_av] [facility] ([facility] Body mass index (BMI) [Ratio] 20.5 kg/m2 20.5 k g/m2 [facility] ([facility] Body height 67 [in_i] 67 [in_i] [facility] ([facility] 5'7"
--- NOTE | 2021-03-14 13:39 | REP ---
INDICATION: drainage from surg incision, r/o abscess distal knee. COMPARISON: None. TECHNIQUE: Multiple ultrasound images were obtained of the area of the knee. FINDINGS: There are no ultrasound abnormalities at the area of interest. IMPRESSION: No ultrasound abnormality in the area of interest. <Electronically signed by Rocky Carmen > 03/14/21 0390
[2021-03-14] MEDS ORDERED: BACITRACIN OINTMENT 30GM TUBE TOP STA (13:46)
[2021-03-14] MEDS ORDERED: BACI500O21 TOP (13:52)
[2021-03-14 13:59] VITALS: BP 114/59
== END 2021-03-14 14:06 | disposition home or self-care (01) ==
LOC: M ED 11:27
DX: T81.41XA Infection following a procedure, superficial incisional surgical site, initial encounter (principal); Y92.9 Unspecified place or not applicable; Y93.9 Activity, unspecified